=== PATIENT | male | born 1995 | race Caucasian/White ===

== ENCOUNTER 2021-08-29 13:47 | Inpatient (IN) | payer OTHER ==
[~2021-08-29] VITALS: Ht 157.5 cm; Wt 64.7 kg
[2021-08-29 14:34] VITALS: BP 125/76
[2021-08-29 16:00] VITALS: BP 125/80
[2021-08-29 16:13] LABS: BASO % 0.4 % (0.0-1.0); HEMATOCRIT 41.7 % (42.0-52.0); LYMPH # 1.9 10*3/uL (1.3-4.4); LYMPH % 26.8 % (27.0-41.0); MEAN CELL VOLUME 81.4 fl (80.0-94.0); MEAN CORPUSCULAR HGB 26.4 pg (27.0-31.0); MEAN CORPUSCULAR HGB CONC 32.4 g/dl (33.0-37.0); MEAN PLATELET VOLUME 9.8 fl (9.6-12.3); MONO # 0.5 10*3/uL (0.1-1.0); MONO % 7.3 % (3.0-9.0); NEUT # 4.6 10*3/uL (2.3-7.9); NEUT % 65.4 % (47.0-73.0); PLATELET COUNT AUTOMATED 252 10*3/uL (130-400); RED BLOOD COUNT 5.12 10*6/uL (4.50-5.90); RED CELL DISTRI WIDTH 13.2 % (0-14.5)
[2021-08-29 16:30] LABS: ALKALINE PHOSPHATASE 106 U/L (45-117); BUN 9 mg/dl (7-24); CHLORIDE 107 mmol/L (98-107); CPK 56 U/L (39-308); CREATININE 0.69 mg/dL (0.70-1.30); SGOT/AST 66 IU/L (3-35); SGPT/ALT 100 U/L (12-78); SODIUM 137 mmol/L (136-145); TOTAL PROTEIN 7.5 gm/dL (6.4-8.2)
[2021-08-29 16:35] LABS: ETHYL ALCOHOL < 3.0 mg/dl (<3)
[2021-08-29 16:36] LABS: BILIRUBIN Negative (Negative); BLOOD Negative (Negative); CLARITY Cloudy (Clear); COLOR Yellow (Yellow); GLUCOSE Negative (Negative); KETONE Negative (Negative); LEUKO ESTERASE Negative (Negative); NITRITE Negative (Negative); SPECIFIC GRAVITY >= 1.030 (1.001-1.030)
[2021-08-29 16:44] LABS: URINE AMPHETAMINES < 1000 (1000ng/ml); URINE BARBITURATES < 200 (200ng/ml); URINE BENZODIAZEPINES < 200 (200ng/ml); URINE CANNABINOIDS (THC) < 50 (50ng/ml); URINE COCAINE < 300 (300ng/ml); URINE METHADONE < 300 (300ng/ml); URINE OPIATES > 300 (300ng/ml)
[2021-08-29 16:45] LABS: URINE PHENCYCLIDINE < 25 (25ng/ml)
[2021-08-29 16:48] LABS: MUCOUS 1+; RBC 0-2 rbc/hpf (0-2)
[2021-08-29 17:30] VITALS: BP 125/80
[2021-08-29 20:00] VITALS: BP 137/91
[2021-08-30] VITALS: BP 135/88
[2021-08-30 07:00] LABS: BASO % 0.7 % (0.0-1.0); EOS % 0.2 % (1.0-4.0); HEMATOCRIT 39.7 % (42.0-52.0); LYMPH # 1.7 10*3/uL (1.3-4.4); LYMPH % 28.7 % (27.0-41.0); MEAN CELL VOLUME 82.2 fl (80.0-94.0); MEAN CORPUSCULAR HGB 26.5 pg (27.0-31.0); MEAN CORPUSCULAR HGB CONC 32.2 g/dl (33.0-37.0); MEAN PLATELET VOLUME 9.8 fl (9.6-12.3); MONO # 0.6 10*3/uL (0.1-1.0); MONO % 10.3 % (3.0-9.0); NEUT # 3.4 10*3/uL (2.3-7.9); NEUT % 59.9 % (47.0-73.0); PLATELET COUNT AUTOMATED 225 10*3/uL (130-400); RED BLOOD COUNT 4.83 10*6/uL (4.50-5.90); RED CELL DISTRI WIDTH 13.4 % (0-14.5); WHITE BLOOD COUNT 5.7 10*3/uL (4.8-10.8)
[2021-08-30 07:26] LABS: CHLORIDE 107 mmol/L (98-107); POTASSIUM 4.3 mmol/L (3.5-5.1); SODIUM 138 mmol/L (136-145)
[2021-08-30 07:56] LABS: BUN 10 mg/dl (7-24); CHOLESTEROL 218 mg/dL (<200); CREATININE 0.64 mg/dL (0.70-1.30); FREE T4 0.95 ng/dl (0.76-1.46); LDL CHOLESTEROL 142 mg/dL (9-159); TRIGLYCERIDES 85 mg/dl (<150)
[2021-08-30 08:00] VITALS: BP 123/83
[2021-08-30 12:00] VITALS: BP 121/73
[2021-08-30 16:00] VITALS: BP 107/76
[2021-08-30 20:00] VITALS: BP 123/61
[2021-08-31] VITALS: BP 119/67
[2021-08-31 06:40] LABS: BASO % 0.6 % (0.0-1.0); EOS % 0.2 % (1.0-4.0); HEMATOCRIT 39.2 % (42.0-52.0); LYMPH # 1.9 10*3/uL (1.3-4.4); LYMPH % 39.9 % (27.0-41.0); MEAN CELL VOLUME 81.3 fl (80.0-94.0); MEAN CORPUSCULAR HGB 26.6 pg (27.0-31.0); MEAN CORPUSCULAR HGB CONC 32.7 g/dl (33.0-37.0); MEAN PLATELET VOLUME 9.7 fl (9.6-12.3); MONO # 0.7 10*3/uL (0.1-1.0); MONO % 14.1 % (3.0-9.0); NEUT # 2.2 10*3/uL (2.3-7.9); PLATELET COUNT AUTOMATED 227 10*3/uL (130-400); RED BLOOD COUNT 4.82 10*6/uL (4.50-5.90); RED CELL DISTRI WIDTH 13.5 % (0-14.5); WHITE BLOOD COUNT 4.8 10*3/uL (4.8-10.8)
[2021-08-31 07:12] LABS: ALBUMIN 3.6 gm/dl (3.1-4.5); ALKALINE PHOSPHATASE 101 U/L (45-117); BUN 15 mg/dl (7-24); CHLORIDE 106 mmol/L (98-107); CREATININE 0.73 mg/dL (0.70-1.30); POTASSIUM 3.8 mmol/L (3.5-5.1); SGOT/AST 87 IU/L (3-35); SGPT/ALT 137 U/L (12-78); SODIUM 138 mmol/L (136-145)
[2021-08-31 12:00] VITALS: BP 116/65
[2021-08-31 16:00] VITALS: BP 121/64
[2021-08-31 20:00] VITALS: BP 132/76
[2021-09-01] VITALS: BP 140/91
[2021-09-01 07:05] LABS: ALBUMIN 4.2 gm/dl (3.1-4.5); BUN 13 mg/dl (7-24); CHLORIDE 106 mmol/L (98-107); CREATININE 0.66 mg/dL (0.70-1.30); POTASSIUM 3.6 mmol/L (3.5-5.1); SGOT/AST 69 IU/L (3-35); SGPT/ALT 145 U/L (12-78); SODIUM 138 mmol/L (136-145)
[2021-09-01 07:06] LABS: ALKALINE PHOSPHATASE 104 U/L (45-117)
[2021-09-01 08:00] VITALS: BP 134/83
[2021-09-01] MEDS ORDERED: DICYCLOMINE HYD20 MG PO (08:38)
[2021-09-01] MEDS ORDERED: ONDANSETRON HYDR4 M1 PO (08:38)
[2021-09-01] MEDS ORDERED: ATARAX,VISTARIL50 MG PO (08:38)
[2021-09-01] MEDS ORDERED: METHOCARBAMOL750 M1 PO (08:38)
[2021-09-02 08:08] LABS: HEP B CORE AB, IGM Negative (Negative); HEPATITIS B SURFACE AG Negative (Negative); HEPATITIS C VIRUS ANTIBODY <0.1 s/co (0.0-0.9)
== END 2021-09-01 12:15 | disposition home or self-care (01) | DRG 897 ==
LOC: ED 13:47 → 5E 15:55 → EDHOLD 15:55 → 5E 17:20
PROVIDERS: Emergency Medicine; Internal Medicine; Student in an Organized Health Care Education/Training Program; ADMIT Emergency Medicine; ATTEND Emergency Medicine
DX: F11.13 Opioid abuse with withdrawal (principal); R74.01 Elevation of levels of liver transaminase levels; E78.00 Pure hypercholesterolemia, unspecified; F41.9 Anxiety disorder, unspecified; D53.9 Nutritional anemia, unspecified